=== PATIENT | female | born 1965 | race Caucasian/White ===

== ENCOUNTER 2019-12-09 08:42 | Outpatient (CLI) | payer OTHER, SELFPAY ==
--- NOTE | ~2019-12-09 | MMUS_ITS ---
EXAMINATION: MM diagnostic geovani BI w natalie, US breast LT limited HISTORY: Six-month follow-up after two benign left breast biopsies. TECHNIQUE: Craniocaudal, mediolateral, and mediolateral oblique 3-D tomosynthesis images of the breas ts were performed and synthetic 2-D images were generated. Spot compression views of the left breast are also obtained. CAD analysis was submitted and interpreted. High resolution limited left breast ul trasound was performed. COMPARISON: 06/01/2019, 11/04/2018, 08/13/2018, 07/24/2018, 07/22/2017 BREAST PARENCHYMAL COMPOSITION: The breasts are heterogeneously dense, which may obscure small masses . FINDINGS: MAMMOGRAPHIC FINDINGS: There is no evidence of suspicious mass, calcification, or architectural distortion in either breast to suggest malignancy. There has been no suspicious interval change. ULTRASOUND: There is an unchanged hypoechoic area at the 6:00 location 1 cm from the nipple which demonstrates an associated biopsy marker. The margins of this region are indistinct which may reflect shadowing from dense tissue accounting for the finding rather than a discrete mass. IMPRESSION: 1. No mammographic evidence of malignancy and stable ultrasound finding with associated biopsy change , possibly reflecting dense tissue. 2. Recommend 6 month follow-up left diagnostic mammogram and ultrasound. BI-RADS category 3, probably benign findings. Reviewed, dictated and finalized at location A. IMPRESSION: 1. No mammographic evidence of malignancy and stable ultrasound finding with as sociated biopsy change, possibly reflecting dense tissue. 2. Recommend 6 month follow-up left diagnostic mammogram and ultrasound. BI-RADS category 3, probably benign findings.
== END 2019-12-09 08:43 | disposition home or self-care (01) ==
PROVIDERS: PCP Family Medicine
DX: R92.8 Other abnormal and inconclusive findings on diagnostic imaging of breast (principal); D24.2 Benign neoplasm of left breast
CPT/HCPCS: 76642; 77062; 77066; G0279

== ENCOUNTER 2020-06-29 10:06 | Outpatient (CLI) | payer OTHER, SELFPAY ==
--- NOTE | ~2020-06-29 | MMUS_ITS ---
EXAMINATION: MM diagnostic geovani LT w natalie, US breast LT limited HISTORY: Six-month follow-up for probably benign left breast mass TECHNIQUE: Craniocaudal, mediolateral, and mediolateral oblique 3-D tomosynthesis images of the left breast were performed and synthetic 2-D images were generated. Spot compression views are also obtain ed. CAD analysis was submitted and interpreted. High resolution limited left breast ultrasound was pe rformed. COMPARISON: 12/09/2019, 06/01/2019, 11/04/2018, 08/13/2018, 07/24/2018 BREAST PARENCHYMAL COMPOSITION: The breasts are heterogeneously dense, which may obscure small masses . FINDINGS: MAMMOGRAPHIC FINDINGS: There is an 11 mm obscured low density mass in the middle third of the inner breast at the 9:00 locat ion 4 cm from the nipple. No suspicious calcification or architectural distortion are identified. ULTRASOUND: There is a stable 6 mm hypoechoic area stable posterior acoustic shadowing and no internal vascularit y. Cysts measuring up to 8 mm are seen at the 9:00 location accounting for the mammographic finding i n question. With indistinct margins at the 6:00 location 1 cm from the nipple which demonstrates IMPRESSION: 1. Probably benign findings at the 6:00 location in the breast. 2. Given one year of interval stability, recommend 12 month followup left diagnostic mammogram and ul trasound. BI-RADS category 3, probably benign findings. Reviewed, dictated and finalized at location A. LS MANAGER IMPRESSION: 1. Probably benign findings at the 6:00 location in the breast. 2. Given one year of interval stability, recommend 12 month followup left diagn ostic mammogram and ultrasound. BI-RADS category 3, probably benign findings.
== END 2020-06-29 10:07 | disposition home or self-care (01) ==
PROVIDERS: PCP Family Medicine
DX: R92.8 Other abnormal and inconclusive findings on diagnostic imaging of breast (principal); D24.2 Benign neoplasm of left breast
CPT/HCPCS: 76642; 77061; 77065; G0279

== ENCOUNTER 2021-08-09 08:43 | Outpatient (CLI) | payer OTHER, SELFPAY ==
--- NOTE | ~2021-08-09 | MMUS_ITS ---
EXAMINATION: MM diagnostic geovani BI w natalie, US breast LT limited HISTORY: Six-month follow-up for probably benign left breast mass TECHNIQUE: Craniocaudal, mediolateral, and mediolateral oblique 3-D tomosynthesis images of the breas ts were performed and synthetic 2-D images were generated. CAD analysis was submitted and interpreted . High resolution limited left breast ultrasound was performed. COMPARISON: 06/29/2020, 12/09/2019, 06/01/2019 BREAST PARENCHYMAL COMPOSITION: The breasts are heterogeneously dense, which may obscure small masses . FINDINGS: MAMMOGRAPHIC FINDINGS: Left breast: The previously described obscured low density mass in the middle third of the right maritza st the 9:00 location has decreased in size now measuring 6 mm, previously 11 mm. No new mass, suspici ous calcification, or architectural distortion are identified. Right breast: There is no suspicious mass, calcification, or architectural distortion to suggest mal ignancy. There has been no suspicious interval change. ULTRASOUND: Again seen is a stable hypoechoic area with indistinct margins at the 6:00 location 1 cm from the nip ple in the left breast with posterior acoustic shadowing but no evident internal vascularity. IMPRESSION: 1. No mammographic or sonographic evidence of malignancy. Sonographically detected abnormality of th e left breast is considered benign given greater than two years of stability. 2. Recommend routine screening mammography in one year. BI-RADS Category 2: Benign finding(s). Reviewed, dictated and finalized at location A. IMPRESSION: 1. No mammographic or sonographic evidence of malignancy. Sonographically dete cted abnormality of the left breast is considered benign given greater than two years of stability. 2. Recommend routine screening mammography in one year. BI-RADS Category 2: Benign finding(s).
== END 2021-08-09 08:44 | disposition home or self-care (01) ==
LOC: CHSIMG 08:45
PROVIDERS: PCP Family Medicine; Visit Provider Family Medicine
DX: R92.8 Other abnormal and inconclusive findings on diagnostic imaging of breast (principal)
CPT/HCPCS: 76642; 77062; 77066; G0279

== ENCOUNTER 2021-11-04 11:13 | Emergency (ER) | payer OTHER, SELFPAY ==
--- NOTE | ~2021-11-04 | XR_ITS ---
XR wrist RT min 3V, XR hand RT min 3V 11/04/2021 12:14 (accession [id number]), 11/04/2021 12:15 (accession [id number]) INDICATION: Right hand and wrist pain after fall PROCEDURE: 4 views right wrist and 3 views right hand COMPARISON: No prior studies for comparison. FINDINGS: Fracture, dislocation or subluxation is not identified. The soft tissues appear within norm al limits. No foreign bodies are identified. IMPRESSION: 1: NO ACUTE BONE OR JOINT ABNORMALITY IDENTIFIED. Reviewed, dictated and finalized at location A. IMPRESSION: 1: NO ACUTE BONE OR JOINT ABNORMALITY IDENTIFIED.
--- NOTE | ~2021-11-04 | XR_ITS ---
XR hand LT min 3V, XR wrist LT min 3V 11/04/2021 12:14 INDICATION: Left hand and wrist pain after fall PROCEDURE: 3 views left hand and 4 views left wrist COMPARISON: No prior studies for comparison. FINDINGS: Fracture, dislocation or subluxation is not identified. The soft tissues appear within norm al limits. No foreign bodies are identified. IMPRESSION: 1: NO ACUTE BONE OR JOINT ABNORMALITY IDENTIFIED. Reviewed, dictated and finalized at location A. IMPRESSION: 1: NO ACUTE BONE OR JOINT ABNORMALITY IDENTIFIED.
[2021-11-04 11:25] VITALS: BP 126/81; PULSE 79; RESP 16; TEMP 36.6; O2SAT 97
--- NOTE | 2021-11-04 11:30 | ED.FALL ---
HPI - Fall General Chief Complaint: Fall Stated Complaint: fall, pain in R and L wrist Time Seen by Provider: 11/04/21 11:30 Source: patient Mode of arrival: ambulatory History of Present Illness HPI Narrative: 56 Year old fell forwards outstretched arms last night. No loss consciousness. She presents with -- pain bilateral wrists decreased range of motion - pain right 5th metacarpal -- abrasion both knees -- bruising of the right cheek. no head injury. No loss consciousness. No neck pain. MD complaint: fall Onset (ago): hour(s) ( 12 hours ago) Fall from: standing Fall witnessed: no Place fall occurred: home Loss of consciousness: none Prolonged down time: no Symptoms prior to fall: none Context: tripped/slipped Location of injury: face Location of injury - extremities: Right: hand and Bilateral: knee Quality: aching Associated symptoms (after fall): denies Related Data Home Medications Medication Instructions Recorded Confirmed budesonide-formoterol HFA 80 1 puff inhalation DAILY 11/04/21 11/04/21 mcg-4.5 mcg/actuation aerosol inhaler (Symbicort) Allergies Allergy/AdvReac Type Severity Reaction Status Date / Time No Known Allergies Allergy Verified 11/04/21 11:23 Review of Systems Review of Systems: All systems reviewed & are unremarkable except as noted in HPI and below Constitutional: Constitutional: Reports as per HPI Eyes: Eyes: Reports as per HPI and Reports no additional eye complaints ENT: Reports system reviewed and no additional complaints, except as documented and Reports as per HPI Cardiovascular: Cardiovascular: Reports as per HPI and Reports no additional cardiovascular complaints Respiratory: Respiratory: Reports as per HPI and Reports no additional respiratory complaints Gastrointestinal: Gastrointestinal: Reports as per HPI and Reports no additional gastrointestinal complaints Genitourinary: Genitourinary: Reports no additional female genitourinary complaints and Reports as per HPI Musculoskeletal: Musculoskeletal: Reports no additional musculoskeletal complaints and Reports as per HPI Comments: bilateral wrist pain. Right 5th metacarpal pain and swelling Integumentary/Breasts: Skin/Breast: Reports system reviewed and no additional complaints, except as docu and Reports as per HPI Comments: abrasions of both knees. Bruising of the right cheek Neurologic: Reports system reviewed and no additional complaints, except as documented and Reports as per HPI Psychiatric: Psychiatric: Reports no additional psychiatric complaints and Reports as per HPI Endocrine: Endocrine: Reports no additional endocrine complaints and Reports as per HPI Hematologic/Lymphatic: Hematologic/Lymphatic: Reports no additional hematologic/lymphatic complaints and Reports as per HPI Allergic/Immunologic: Allergic/Immunologic: Reports no additional allergic/immunologic complaints and Reports as per HPI Exam Const: General: healthy appearing, no acute distress and alert Limitations: no limitations HENMT: Head: normal to inspection Ears: external ears normal and TM's normal bilaterally General nose exam: Normal external nose present and Normal nares present Face and sinus: normal facial exam and sinuses nontender Mouth: Yes Normal oral and palatal mucosa present Throat: posterior oropharynx normal Eyes: Conjunctivae: conjunctivae normal Pupils: Equal, round and reactive pupils present EOM: EOMs intact bilaterally Direct Ophthalmoscopy: no photophobia Chest: Chest palpation & inspection: normal inspection of the chest Other: no spinal tenderness Resp: Effort & Inspection: normal respiratory effort Auscultation: clear to auscultation bilaterally Cardio: Rate: regular rate Rhythm: regular rhythm Heart sounds: Murmur heart sound present GI: Auscultation: normal bowel sounds Other: no tenderness/rigidity /rebound : General: Yes bladder normal to palpation Back/Spine/Pel
[2021-11-04] MEDS: TETANUS,DIPHTHERIA,AC PERTUSSIS ADULT 0.5 ML (ADACEL) IM (12:49)
--- NOTE | 2021-11-04 12:55 | PC.NURSE ---
alicia wraps for comfort at 1250
[2021-11-04 12:57] VITALS: BP 122/80; PULSE 68; RESP 18; TEMP 37.2; O2SAT 96
== END 2021-11-04 12:58 | disposition home or self-care (01) ==
PROVIDERS: Emergency Provider Internal Medicine Critical Care Medicine; PCP Family Medicine
DX: M25.532 Pain in left wrist (principal); M25.531 Pain in right wrist; S00.83XA Contusion of other part of head, initial encounter; W19.XXXA Unspecified fall, initial encounter
CPT/HCPCS: 73110; 73130; 90471; 90715; 99284

== ENCOUNTER 2022-08-13 07:45 | Outpatient (CLI) | payer OTHER, SELFPAY ==
--- NOTE | ~2022-08-13 | MM_ITS ---
EXAMINATION: MM screening geovani BI w natalie HISTORY: Screening TECHNIQUE: Craniocaudal and mediolateral oblique 3-D tomosynthesis images were obtained and synthetic 2-D images were generated. CAD analysis was submitted and interpreted. COMPARISON: Comparison to multiple prior studies sequentially, with oldest reviewed study dated 12/08. BREAST PARENCHYMAL COMPOSITION: There are scattered areas of fibroglandular density. FINDINGS: There is no evidence of suspicious mass, calcification, or architectural distortion to sugg est malignancy in either breast. There has been no suspicious interval change. IMPRESSION: 1. No mammographic evidence of malignancy. 2. Recommend routine screening mammography in one year. BI-RADS Category 1: Negative Reviewed, dictated and finalized at location A.
== END 2022-08-13 07:46 | disposition home or self-care (01) ==
LOC: CHSIMG 07:46
PROVIDERS: PCP Family Medicine; Visit Provider Family Medicine
DX: Z12.31 Encounter for screening mammogram for malignant neoplasm of breast (principal)
CPT/HCPCS: 77063; 77067

== ENCOUNTER 2023-08-18 12:33 | Outpatient (CLI) | payer OTHER, SELFPAY ==
--- NOTE | ~2023-08-18 | MM_ITS ---
EXAMINATION: MM screening geovani BI w natalie HISTORY: Screening mammogram TECHNIQUE: Craniocaudal and mediolateral oblique 3-D tomosynthesis images were obtained and synthetic 2-D images were generated. Exaggerated medial craniocaudal view. CAD analysis was submitted and inte rpreted. COMPARISON: 08/13/2022 bilateral screening mammogram 08/09/2021 diagnostic bilateral mammogram and limited left breast ultrasound examination 06/29/2020 diagnostic left mammogram and limited left breast ultrasound 12/09/2019 diagnostic bilateral mammogram and limited left breast ultrasound 06/01/2019 diagnostic left mammogram and limited left breast ultrasound 07/24/2018 bilateral screening mammogram BREAST PARENCHYMAL COMPOSITION: The breasts are heterogeneously dense, which may obscure small masses . FINDINGS: There are 2 biopsy markers on the left; history of 2 prior benign left breast biopsies. The re is no evidence of suspicious mass, calcification, or architectural distortion to suggest malignanc y in either breast. There has been no suspicious interval change. IMPRESSION: 1. No mammographic evidence of malignancy. 2. Recommend routine screening mammography in one year. BI-RADS Category 1: Negative Reviewed, dictated and finalized at location A.
== END 2023-08-18 12:34 | disposition home or self-care (01) ==
LOC: CHSIMG 12:35
PROVIDERS: PCP Family Medicine; Visit Provider Family Medicine
DX: Z12.31 Encounter for screening mammogram for malignant neoplasm of breast (principal)
CPT/HCPCS: 77063; 77067

== ENCOUNTER 2023-12-25 17:44 | Emergency (ER) | payer OTHER, SELFPAY ==
--- NOTE | ~2023-12-25 | XR_ITS ---
EXAMINATION: XR ankle RT min 3V, XR foot RT min 3V DATE: 12/25/2023 19:06 INDICATION: Right foot and ankle injury TECHNIQUE: 1. Anteroposterior, mortise and lateral view of the right ankle were obtained. 2. Dorsoplantar, oblique and lateral views of the right foot were obtained. COMPARISON: None. FINDINGS: Subtle nondisplaced transverse fracture across the distal lateral malleolus proximal 1.5 cm below the level of the tibiotalar joint line. Alignment remains essentially anatomic. No other fractures ident ified at the right foot or ankle. Joint spaces are normal. Soft tissue swelling about the lateral mal leolus. No evident ankle joint effusion. IMPRESSION: 1. Nondisplaced likely Delong type A fracture across the distal aspect of the lateral malleolus. Reviewed, dictated and finalized at location A. IMPRESSION: 1. Nondisplaced likely Delong type A fracture across the distal aspect of the la teral malleolus.
[2023-12-25 17:45] VITALS: BP 158/88; PULSE 88; RESP 16; TEMP 36.3; O2SAT 96
--- NOTE | 2023-12-25 18:01 | ED.LOWEXIN ---
HPI - Extremity Injury (Lower) General Chief Complaint: Extremity Injury, Lower Stated Complaint: Right lower extremity injury Time Seen by Provider: 12/25/23 17:59 Source: patient Mode of arrival: ambulatory Limitations: no limitations History of Present Illness MD complaint: ankle injury and foot injury Onset (ago): hour(s) (last night) Type of Injury: other (fell and twisted) Place: home Severity: moderate Exacerbating factors: weight bearing, movement and palpation Associated symptoms: unable to bear weight Other symptoms: none Treatments prior to arrival: cold therapy Related Data Home Medications Medication Instructions Recorded Confirmed budesonide-formoterol HFA 80 1 puff inhalation DAILY 11/04/21 12/25/23 mcg-4.5 mcg/actuation aerosol inhaler (Symbicort) Allergies Allergy/AdvReac Type Severity Reaction Status Date / Time No Known Allergies Allergy Verified 12/25/23 17:58 Review of Systems Review of Systems: All systems reviewed & are unremarkable except as noted in HPI and below Constitutional: Constitutional: Reports as per HPI Eyes: Eyes: Reports as per HPI ENT: Reports system reviewed and no additional complaints, except as documented Cardiovascular: Cardiovascular: Reports as per HPI Respiratory: Respiratory: Reports as per HPI Gastrointestinal: Gastrointestinal: Reports as per HPI Genitourinary: Genitourinary: Reports no additional female genitourinary complaints Musculoskeletal: Musculoskeletal: Reports no additional musculoskeletal complaints, Reports as per HPI, Reports arthralgias and Reports joint swelling Integumentary/Breasts: Skin/Breast: Reports system reviewed and no additional complaints, except as docu Neurologic: Reports system reviewed and no additional complaints, except as documented and Denies numbness Psychiatric: Psychiatric: Reports no additional psychiatric complaints Endocrine: Endocrine: Reports no additional endocrine complaints Hematologic/Lymphatic: Hematologic/Lymphatic: Reports no additional hematologic/lymphatic complaints Allergic/Immunologic: Allergic/Immunologic: Reports no additional allergic/immunologic complaints Exam Const: General: healthy appearing Nutritional Appearance: well nourished Orientation/consciousness: patient oriented x3 Limitations: no limitations HENMT: Head: normal to inspection Ears: external ears normal Face/Nose/Sinus: Normal external nose present Face and sinus: normal facial exam Eyes: Conjunctivae: conjunctivae normal Pupils: Equal, round and reactive pupils present EOM: EOMs intact bilaterally Direct Ophthalmoscopy: no photophobia Neck: Neck: normal visual inspection Chest: Chest palpation & inspection: normal inspection of the chest Resp: Effort & Inspection: normal respiratory effort Cardio: Rate: regular rate GI: Inspection: non-distended GI Palp: No Tenderness to palpation present (GI) Skin: General skin exam: normal color Rashes: no rashes Wounds: no wounds Neuro: General: patient oriented x3 Speech: normal speech Other: grossly normal Extrem: Other: Right Ankle: no obvious deformity, mild-to-mod swelling at lateral malleolus. Tender to palpation lateral malleolus and proximal 5th metatarsal. NV intact. Course Course Emergency Course: 58 y/o female presents to the ED c/o R ankle injury. Patient states she tripped over cat last night and twisted ankle. c/o pain at lateral ankle. PE: no obvious deformity, mild-to-mod swelling at lateral malleolus. Tender to palpation lateral malleolus and prox 5th MT. NV intact. XR R Ankle: subtle transverse fx across lateral malleolus XR R Foot: negative Tx: orthopedic boot, Esbon 10 mg po *reviewed and discussed results with patient and her . Discussed further management. patient voices understanding and agreement. Rx and Instructions Vital Signs Vital signs: Vital Signs Temperature 36.3 C L 12/25/23 17:45 Pul
--- NOTE | 2023-12-25 19:00 | PC.NURSE ---
assumed care. report received from prashanth amaya
[2023-12-25] MEDS: HYDROcodone/acetaminophen (*CRX) 10-325 MG TABLET 1 TAB PO (19:47)
[2023-12-25 20:02] VITALS: BP 138/78; PULSE 82; RESP 18; O2SAT 98
== END 2023-12-25 20:02 | disposition home or self-care (01) ==
PROVIDERS: Emergency Provider Emergency Medicine; PCP Family Medicine
DX: S82.831A Other fracture of upper and lower end of right fibula, initial encounter for closed fracture (principal); W01.0XXA Fall on same level from slipping, tripping and stumbling without subsequent striking against object, initial encounter
CPT/HCPCS: 73610; 73630; 99284; A9270; L2112

== ENCOUNTER 2024-08-26 07:45 | Outpatient (CLI) | payer OTHER, SELFPAY ==
--- NOTE | ~2024-08-26 | MM_ITS ---
EXAMINATION: MM screening [facility] BI w natalie HISTORY: Screening TECHNIQUE: Craniocaudal and mediolateral oblique 3-D tomosynthesis images were obtained and synthetic 2-D images were generated. CAD analysis was submitted and interpreted. COMPARISON: Comparison to multiple prior studies sequentially, with oldest reviewed study dated 12/08. BREAST PARENCHYMAL COMPOSITION: Not dense: There are scattered areas of fibroglandular density. FINDINGS: There is no evidence of suspicious mass, calcification, or architectural distortion to sugg est malignancy in either breast. There has been no suspicious interval change. IMPRESSION: 1. No mammographic evidence of malignancy. 2. Recommend routine screening mammography in one year. BI-RADS Category 1: Negative Reviewed, dictated and finalized at location A.
--- OUTSIDE RECORDS SUMMARY | 2024-08-26 07:48 | XMS_ITS | Clinical Summary ---
Author Organization [facility] Address [address] [place] [id number] Care Team Providers Care Loom Fixer Name Role Phone Marshal Delong MD Primary Care Provider [phone] Allergies Active Allergy Reactions Criticality Noted Date Comments Seasonal Shortness of Breath High 04/14/2020 Social History Tobacco Use Types Packs/Day Years Used Date Smoking Tobacco: Never Assessed Comments Unknown Sex and Gender Information Value Date Recorded Sex Assigned at Not on file Legal Sex Female 8:36 PM CDT Gender Identity Not on file Sexual Orientation Not on file Last Filed Vital Signs Vital Sign Reading Time Taken Comments Blood Pressure 123/77 08/20/2017 9:49 AM CDT Pulse 78 08/20/2017 9:49 AM CDT Temperature - - Respiratory Rate - - Oxygen Saturation - - Inhaled Oxygen Concentration - - Weight 86.2 kg (190 lb) 08/20/2017 9:49 AM CDT Height 167.6 cm (5' 6 ) 08/20/2017 9:49 AM CDT Body Mass Index 30.67 08/20/2017 9:49 AM CDT Plan of Treatment Health Maintenance Due Date Last Done Comments Cervical Cancer Screening Pa p Smear (Age 30 to 64) Every 3 Years 1966 Colorectal Cancer Screening Colonoscopy (10 Years) 1966 Annual Physical 1969 Pneumococcal Vaccine: Pediat rics (0 to 5 Years) and At-Risk Patients (6 to 64 Years) (1 of 2 - PCV) 1972 Hepatitis C 1984 DTaP, Tdap and Td Vaccines ( 1 - Tdap) 1985 Hepatitis B Vaccines (1 of 3 - 19+ 3-dose series) 1985 Cervical Cancer Screening Pa p with HPV Testing (Age 30 to 64) Every 5 Years 1996 Cervical Cancer Screening with HPV 1996 Mammogram Screening 2006 Zoster Vaccines (1 of 2) 2016 COVID-19 Vaccine (2023-2 5 season) 2024 Meningococcal B Vaccine Aged Out No l onger eligible based on patient's age to complete this topic Meningococcal Vaccine Aged Out No lazara freeman eligible based on patient's age to complete this topic RSV Immunizations Under 20 Months Aged Out No longer eligible based on patient's age to complete this topic Insurance [facility] Care Teams Loom Fixer Relationship Specialty Start Date End Date Marshal Delong MD [address] [place] [id number] PCP - General FAMILY PRACTICE 03/19/21
--- OUTSIDE RECORDS SUMMARY | 2024-08-26 07:48 | XMS_ITS | Referral Summary ---
Author Organization [address] Address [address] [place] [id number] Care Team Providers Care Melter Caster Name Role Phone Chi Frost MD Primary Care Provider [phone] Allergies Active Allergy Reactions Criticality Noted Date Comments Other Shortness of breath High 04/14/2020 Medications omeprazole (PriLOSEC) 40 mg capsule Take 1 capsule (40 mg total) by mouth daily 12/04/2023 Active multivitamin with minerals tablet Take 1 tablet by mouth daily Active Active Problems No known active problems Social History Tobacco Use Types Packs/Day Years Used Date Smoking Tobacco: Former Cigarettes Tobacco Cessation:Counseling Given: Not Answered Comments Unknown Sex and Gender Information Value Date Recorded Sex Assigned at Not on file Legal Sex Female 10:10 AM CHISEL GRINDER Gender Identity Not on file Sexual Orientation Not on file Last Filed Vital Signs Vital Sign Reading Time Taken Comments Blood Pressure 125/85 04/01/2024 8:16 AM CHISEL GRINDER Pulse 80 04/01/2024 8:16 AM CHISEL GRINDER Temperature - - Respiratory Rate 18 04/01/2024 8:16 AM CHISEL GRINDER Oxygen Saturation - - Inhaled Oxygen Concentration - - Weight 85.7 kg (188 lb 14.4 oz) 04/01/2024 8:16 AM CHISEL GRINDER Height 167.6 cm (5' 6 ) 04/01/2024 8:16 AM CHISEL GRINDER Body Mass Index 30.49 04/01/2024 8:16 AM CHISEL GRINDER Plan of Treatment Not on file Insurance [place] [id number] Care Teams Melter Caster Relationship Specialty Start Date End Date Chi Frost MD [address] [place] [phone] PCP - General 03/03/17
--- OUTSIDE RECORDS SUMMARY | 2024-08-26 07:48 | XMS_ITS | Clinical Summary ---
Author Organization [address] Address [address] [place] [id number] Care Team Providers Care Coding Clerks Supervisor Name Role Phone Chi Frost MD Primary Care Provider [phone] Allergies Active Allergy Reactions Criticality Noted Date Comments Other Shortness of breath High 04/14/2020 Medications omeprazole (PriLOSEC) 40 mg capsule Take 1 capsule (40 mg total) by mouth daily 12/04/2023 Active multivitamin with minerals tablet Take 1 tablet by mouth daily Active Active Problems No known active problems Surgical History Surgery Date Site/Laterality Comments APPENDECTOMY HAND SURGERY TONSILLECTOMY CHEST SURGERY Left Breast biopsy Family History Medical History Relation Name Comments Arthritis Other Blood Clot Other Gout Other Osteoporosis Other Relation Name Status Comments Other Social History Tobacco Use Types Packs/Day Years Used Date Smoking Tobacco: Former Cigarettes Tobacco Cessation:Counseling Given: Not Answered Comments Unknown Sex and Gender Information Value Date Recorded Sex Assigned at Not on file Legal Sex Female 10:10 AM [employer] Gender Identity Not on file Sexual Orientation Not on file Obstetrics History Last Filed Vital Signs Vital Sign Reading Time Taken Comments Blood Pressure 125/85 04/01/2024 8:16 AM [employer] Pulse 80 04/01/2024 8:16 AM [employer] Temperature - - Respiratory Rate 18 04/01/2024 8:16 AM [employer]UFA[employer]ING [employer] Oxygen Saturation - - Inhaled Oxygen Concentration - - Weight 85.7 kg (188 lb 14.4 oz) 04/01/2024 8:16 AM [employer]ING [employer] Height 167.6 cm (5' 6 ) 04/01/2024 8:16 AM [employer] Body Mass Index 30.49 04/01/2024 8:16 AM [employer]ING [employer] Plan of Treatment Health Maintenance Due Date Last Done Comments Breast Cancer Screening-Mammogram 1966 Cervical Cancer Screening 1966 Colon Cancer Screening-Colonoscopy 1966 Depression Screening 1966 Hepatitis C Screening 1966 Hepatitis B Screening 1984 Regular Well Visit/Exam 18-64 1984 Pneumococcal vaccine <65 (1 of 2 - PCV) 1985 Zoster Vaccine (2 of 2) 02/12/2023 12/18/2022 Influenza Vaccine (Season Ended) 2025 02/19/2023, 02/18/2022, 02/09/2021, Additional history exists DTaP/Tdap/Td Vaccine (3 - Td or Tdap) 11/05/2031 11/04/2021, 05/10/2015 Insurance Care Teams Coding Clerks Supervisor Relationship Specialty Start Date End Date Chi Frost MD [address] [place], [place] [id number] PCP - General 03/03/17
== END 2024-08-26 07:46 | disposition home or self-care (01) ==
LOC: CHSIMG 07:45
PROVIDERS: PCP Family Medicine; Visit Provider Family Medicine
DX: Z12.31 Encounter for screening mammogram for malignant neoplasm of breast (principal)
CPT/HCPCS: 77063; 77067